=== PATIENT | female | born 1945 | race Caucasian/White ===

== ENCOUNTER 2017-04-17 12:24 | Day surgery (SDC) | payer MEDICARE ==
[~2017-04-17 12:24] MED LIST: AMLO5 PO; BIOT1TAB2 PO; CALCCHW25 PO; DIGO0.12 PO; MONT10 PO; SIMV20 PO; SODI1 PO; VITA100018 PO; Z.0.COMMODE-3:1; Z.0.WALKERFRONT; ZYRT10TA12 PO
--- NOTE | 2017-04-20 18:47 | RADRPT ---
EXAM DATE/TIME: 04/17/2017 13:03 [facility] COMPARISON: No previous studies available for comparison. [facility], MRI KNEE W/O CONTRAST, March 20, 2017 INDICATIONS : Left leg swelling. MEDICAL HISTORY : Arthritis. Colitis. Low heart rate. SURGICAL HISTORY : Tonsillectomy. Hysterectomy. Right hand surgery. Ganglion cyst removal left herrera kingsley. ENCOUNTER: Initial ACUITY: 1 month PAIN SCORE: 5/10 LOCATION: Left knee. AREA EVALUATED: Left knee. FINDINGS: Mrs. Louie came in for aspiration of a cyst by MRI that is partially under the patella extending posteriorly. She had a busy april weekend and comes in today with very little cyst remaining under the pa tella. There is induration and edema in the posterior muscles of the calf including the gastrocnemiu s. I believe the cysts have for the most part ruptured. Symptomatically she has better range of bárbara on and other than the increased pain in her calf, actually thinks the process has improved. There is no DVT identified in the evaluation of the calf. CONCLUSION: Probable spontaneous rupture of the majority of the ganglion cyst described by the MR I. No puncture was attempted. Santy Suero MD FACR on April 20, 2017 at 17:32 Board Certified Radiologist. This report was verified electronically.
== END 2017-04-17 14:00 | disposition home or self-care (01) ==
LOC: HRAD 12:24 → HRIP 12:29 → HRAD 14:00
PROVIDERS: ATTEND Orthopaedic Surgery Orthopaedic Surgery of the Spine
DX: M67.462 Ganglion, left knee (principal)
CPT/HCPCS: 76882

== ENCOUNTER 2018-02-05 12:55 | Day surgery (SDC) | payer MEDICARE ==
[2018-02-05] MEDS ORDERED: LIDOCAINE HCL 1% 20 ML VIAL SQ ONE (12:56)
[2018-02-05 13:30] VITALS: BP 149/86; PULSE 67; RESP 20; TEMP 97.6; O2SAT 99
[2018-02-05 14:15] VITALS: BP 168/100; PULSE 72; RESP 20; TEMP 97.5
--- NOTE | 2018-02-05 14:31 | RADRPT ---
EXAM DATE/TIME: 02/05/2018 13:31 [facility] COMPARISON: No previous studies available for comparison. INDICATIONS : Fluid collection left knee. MEDICAL HISTORY : Arthritis. Scoliosis. SURGICAL HISTORY : Hip replacement. Neck fusion. ENCOUNTER: Initial ACUITY: 1 day PAIN SCORE: 3/10 LOCATION: Left leg. FLUID: Total volume of 2 cc of clear, gelatinous yellow fluid was removed. Fluid was discarded. Post procedure scanning reveals no hematoma or other complication. TECHNIQUE: 1. Ultrasound guidance for needle aspiration. 2. Aspiration. The risks, benefits and alternatives to the procedure were explained and verbal and written consent w as obtained. The site was prepped in sterile fashion. Full sterile technique was used, including ca p, mask, sterile gloves and gown and a large sterile sheet. Hand hygiene and 2% chlorhexidine and/or betadine/alcohol prep was utilized per protocol for cutaneous antisepsis. The skin and subcutaneous tissues were infiltrated with local anesthetic solution. Sterile gel and sterile probe cover were u tilized for ultrasound guidance. With the patient on the ultrasound table, ultrasound imaging was used to select the most appropriate approach for aspiration. A dermatotomy was made with an 11 blade scalpel. An 18 gauge spinal needle was passed into the loculated collection and only 2 cc of very gelatinous fluid could be aspirated fr om the loculated collection despite multiple attempts. The majority of the collection remained. CONCLUSION: Ultrasound guided aspiration of loculated left knee collection yielding only 2 cc of very gelatinous fluid. The remainder of the collection could not be aspirated. Teofilo Overton MD on February 05, 2018 at 14:25 Board Certified Radiologist. This report was verified electronically.
== END 2018-02-05 14:48 | disposition home or self-care (01) ==
LOC: HRAD 12:55 → HRIP 12:56 → HRAD 14:48
PROVIDERS: ATTEND Orthopaedic Surgery Orthopaedic Surgery of the Spine
DX: M67.462 Ganglion, left knee (principal); Z96.649 Presence of unspecified artificial hip joint
CPT/HCPCS: 20612; 76942